=== PATIENT | male | born 1940 | race Caucasian/White ===

== ENCOUNTER → 2017-03-12 | Outpatient (CLI) | payer MEDICARE, MEDICAID ==
[~2017-03-12] MED LIST: AMOXICILLIN/CLA1 TA2 PO; ASPIR-TRIN325 MG PO; CAPTOPRIL25 MG PO; CEFAZOLIN1 G1 IV; DOXYCYCLINE HY100 M5 PO; IMDUR SA60 MG PO; LISINOPRIL10 MG PO; METOPROLOL50 MG PO; NORVASC5 MG PO; NOVOLOG; NOVOLOG MI100 UNIT/2 SC; TEFLARO400 MG IV; TRAMADOL HCL50 MG PO; ZOCOR40 MG PO; ZOSYN IV
[2017-03-12 16:45] LABS: BASO % 0.4 % (0.0-1.0); EOS # 0.1 10*3/uL (0.0-0.4); EOS % 1.6 % (1.0-4.0); HEMATOCRIT 37.2 % (42.0-52.0); HEMOGLOBIN 12.3 g/dl (14.0-18.0); LYMPH # 1.6 10*3/uL (1.3-4.4); LYMPH % 20.3 % (27.0-41.0); MEAN CELL VOLUME 92.1 fl (80.0-94.0); MEAN CORPUSCULAR HGB 30.4 pg (27.0-31.0); MEAN CORPUSCULAR HGB CONC 33.1 g/dl (33.0-37.0); MEAN PLATELET VOLUME 10.9 fl (9.6-12.3); MONO # 0.6 10*3/uL (0.1-1.0); NEUT # 5.3 10*3/uL (2.3-7.9); NEUT % 69.3 % (47.0-73.0); PLATELET COUNT AUTOMATED 203 10*3/uL (130-400); RED BLOOD COUNT 4.04 10*6/uL (4.50-5.90); WHITE BLOOD COUNT 7.7 10*3/uL (4.8-10.8)
[2017-03-12 17:14] LABS: C-REACTIVE PROTEIN 2.82 MG/DL (0-0.3); URIC ACID 7.1 mg/dL (3.5-7.2)
== END | disposition home or self-care (01) ==
LOC: LAB 15:39
PROVIDERS: Orthopaedic Surgery
DX: M25.532 Pain in left wrist (principal)

== ENCOUNTER 2018-10-22 07:43 | Emergency (ER) | payer MEDICARE, MEDICAID ==
[2018-10-22] MEDS ORDERED: MUCINEX DM 30/61 TAB PO (09:35)
== END 2018-10-22 09:37 | disposition home or self-care (01) ==
LOC: ED 07:43
DX: J98.8 Other specified respiratory disorders (principal); I12.9 Hypertensive chronic kidney disease with stage 1 through stage 4 chronic kidney disease, or unspecified chronic kidney disease; E11.22 Type 2 diabetes mellitus with diabetic chronic kidney disease; N18.3 Chronic kidney disease, stage 3 (moderate); E78.5 Hyperlipidemia, unspecified; E66.9 Obesity, unspecified; E11.40 Type 2 diabetes mellitus with diabetic neuropathy, unspecified; M86.8X7 Other osteomyelitis, ankle and foot; Z88.6 Allergy status to analgesic agent; Z88.8 Allergy status to other drugs, medicaments and biological substances; Z79.899 Other long term (current) drug therapy; Z79.82 Long term (current) use of aspirin; Z79.4 Long term (current) use of insulin

== ENCOUNTER 2019-07-21 23:41 | Emergency (ER) | payer OTHER, MEDICAID ==
[~2019-07-21 23:41] MED LIST changes: +MUCINEX DM 30/61 TAB PO
[2019-07-21] MEDS ORDERED: TRESIBA100 UNIT/1 SQ (23:45)
== END 2019-07-22 02:00 | disposition home or self-care (01) ==
LOC: ED 23:41
DX: S49.92XA Unspecified injury of left shoulder and upper arm, initial encounter (principal); E11.42 Type 2 diabetes mellitus with diabetic polyneuropathy; E11.22 Type 2 diabetes mellitus with diabetic chronic kidney disease; I12.9 Hypertensive chronic kidney disease with stage 1 through stage 4 chronic kidney disease, or unspecified chronic kidney disease; N18.3 Chronic kidney disease, stage 3 (moderate); I25.10 Atherosclerotic heart disease of native coronary artery without angina pectoris; E78.5 Hyperlipidemia, unspecified; E66.9 Obesity, unspecified; Z88.6 Allergy status to analgesic agent; Z88.8 Allergy status to other drugs, medicaments and biological substances; Z79.899 Other long term (current) drug therapy; Z79.82 Long term (current) use of aspirin; Z79.4 Long term (current) use of insulin; W01.198A Fall on same level from slipping, tripping and stumbling with subsequent striking against other object, initial encounter; Y93.89 Activity, other specified; Y92.091 Bathroom in other non-institutional residence as the place of occurrence of the external cause; Y99.8 Other external cause status

== ENCOUNTER → 2020-01-20 | Outpatient (CLI) | payer OTHER ==
[~2020-01-20] MED LIST changes: +TRESIBA100 UNIT/1 SQ
[2020-01-20 12:18] LABS: BASO # 0.1 10*3/uL (0.0-0.1); BASO % 0.9 % (0.0-1.0); EOS # 0.3 10*3/uL (0.0-0.4); EOS % 4.7 % (1.0-4.0); HEMATOCRIT 45.9 % (42.0-52.0); LYMPH # 1.5 10*3/uL (1.3-4.4); LYMPH % 26.5 % (27.0-41.0); MEAN CELL VOLUME 89.3 fl (80.0-94.0); MEAN CORPUSCULAR HGB 29.8 pg (27.0-31.0); MEAN CORPUSCULAR HGB CONC 33.3 g/dl (33.0-37.0); MEAN PLATELET VOLUME 11.3 fl (9.6-12.3); MONO # 0.5 10*3/uL (0.1-1.0); MONO % 7.9 % (3.0-9.0); NEUT # 3.4 10*3/uL (2.3-7.9); NEUT % 59.6 % (47.0-73.0); PLATELET COUNT AUTOMATED 220 10*3/uL (130-400); RED BLOOD COUNT 5.14 10*6/uL (4.50-5.90); RED CELL DISTRI WIDTH 12.7 % (0-14.5); WHITE BLOOD COUNT 5.7 10*3/uL (4.8-10.8)
[2020-01-20 12:31] LABS: URINE CREATININE RANDOM 80.6 mg/dL
[2020-01-20 12:47] LABS: CREATININE 2.09 mg/dL (0.70-1.30); POTASSIUM 3.9 mmol/L (3.5-5.1)
[2020-01-20 12:59] LABS: BACTERIA TRACE; BILIRUBIN NEGATIVE (NEGATIVE); BLOOD NEGATIVE (NEGATIVE); CLARITY CLEAR (CLEAR); COLOR YELLOW (YELLOW); EPITHELIAL CELLS 0-2; GLUCOSE 1+ (NEGATIVE); KETONE NEGATIVE (NEGATIVE); LEUKO ESTERASE NEGATIVE (NEGATIVE); NITRITE NEGATIVE (NEGATIVE); PH 6.5 (5.0-9.0); RBC 0-2 rbc/hpf (0-2); UROBILINOGEN 0.2 E.U./dl (0.2-1.0)
[2020-01-20 13:36] LABS: FERRITIN 33.5 ng/mL (22.0-322.0); VITAMIN D, 25-HYDROXY 26.8 ng/mL (30-100)
[2020-01-20 13:37] LABS: PTH INTACT 151.5 pg/mL (18.5-88.0)
== END | disposition home or self-care (01) ==
LOC: LAB 11:36
PROVIDERS: Internal Medicine Nephrology
DX: E11.22 Type 2 diabetes mellitus with diabetic chronic kidney disease (principal); N18.3 Chronic kidney disease, stage 3 (moderate); D63.1 Anemia in chronic kidney disease; N25.81 Secondary hyperparathyroidism of renal origin; E55.9 Vitamin D deficiency, unspecified; Z79.899 Other long term (current) drug therapy

== ENCOUNTER → 2020-01-26 | Outpatient (CLI) | payer OTHER | END | disposition home or self-care (01) | LOC: US 09:15 | DX: N28.1 Cyst of kidney, acquired (principal); N13.30 Unspecified hydronephrosis; N40.0 Benign prostatic hyperplasia without lower urinary tract symptoms; I73.9 Peripheral vascular disease, unspecified; N18.3 Chronic kidney disease, stage 3 (moderate) ==

== ENCOUNTER 2020-03-04 12:17 | Emergency (ER) | payer OTHER ==
[~2020-03-04] VITALS: Ht 182.8 cm; Wt 103.0 kg
[2020-03-04 13:14] LABS: BASO % 0.2 % (0.0-1.0); EOS % 0.3 % (1.0-4.0); HEMATOCRIT 39.7 % (42.0-52.0); LYMPH % 11.9 % (27.0-41.0); MEAN CELL VOLUME 87.3 fl (80.0-94.0); MEAN CORPUSCULAR HGB 29.9 pg (27.0-31.0); MEAN CORPUSCULAR HGB CONC 34.3 g/dl (33.0-37.0); MEAN PLATELET VOLUME 11.1 fl (9.6-12.3); MONO # 0.7 10*3/uL (0.1-1.0); MONO % 7.8 % (3.0-9.0); NEUT % 79.3 % (47.0-73.0); PLATELET COUNT AUTOMATED 176 10*3/uL (130-400); RED BLOOD COUNT 4.55 10*6/uL (4.50-5.90); RED CELL DISTRI WIDTH 13.2 % (0-14.5); WHITE BLOOD COUNT 8.8 10*3/uL (4.8-10.8)
[2020-03-04 13:28] LABS: ALBUMIN 3.5 gm/dl (3.1-4.5); CREATININE 4.39 mg/dL (0.70-1.30); POTASSIUM 3.3 mmol/L (3.5-5.1); TOTAL PROTEIN 7.5 gm/dL (6.4-8.2)
== END 2020-03-04 18:25 | disposition home or self-care (01) ==
LOC: ED 12:17
PROVIDERS: Emergency Medicine
DX: R10.32 Left lower quadrant pain (principal); E11.9 Type 2 diabetes mellitus without complications; M19.90 Unspecified osteoarthritis, unspecified site; I25.10 Atherosclerotic heart disease of native coronary artery without angina pectoris; I11.0 Hypertensive heart disease with heart failure; I50.9 Heart failure, unspecified; Z88.8 Allergy status to other drugs, medicaments and biological substances; Z79.82 Long term (current) use of aspirin

== ENCOUNTER 2020-03-08 16:32 | Emergency (ER) | payer MEDICARE ==
[~2020-03-08] VITALS: Ht 187.9 cm; Wt 103.0 kg
[2020-03-08 17:14] LABS: BASO % 0.4 % (0.0-1.0); EOS % 0.4 % (1.0-4.0); HEMATOCRIT 35.7 % (42.0-52.0); LYMPH # 1.2 10*3/uL (1.3-4.4); LYMPH % 14.8 % (27.0-41.0); MEAN CELL VOLUME 87.5 fl (80.0-94.0); MEAN CORPUSCULAR HGB 29.4 pg (27.0-31.0); MEAN CORPUSCULAR HGB CONC 33.6 g/dl (33.0-37.0); MEAN PLATELET VOLUME 10.9 fl (9.6-12.3); MONO # 0.9 10*3/uL (0.1-1.0); MONO % 10.4 % (3.0-9.0); NEUT # 6.1 10*3/uL (2.3-7.9); PLATELET COUNT AUTOMATED 199 10*3/uL (130-400); RED BLOOD COUNT 4.08 10*6/uL (4.50-5.90); RED CELL DISTRI WIDTH 13.2 % (0-14.5); WHITE BLOOD COUNT 8.4 10*3/uL (4.8-10.8)
[2020-03-08 17:29] LABS: POTASSIUM 3.8 mmol/L (3.5-5.1); TOTAL PROTEIN 7.1 gm/dL (6.4-8.2)
[2020-03-08 17:32] LABS: BILIRUBIN 1+ (NEGATIVE); CLARITY SL CLOUDY (CLEAR); COLOR YELLOW (YELLOW); GLUCOSE TRACE (NEGATIVE); KETONE NEGATIVE (NEGATIVE)
[2020-03-08 17:33] LABS: BLOOD TRACE-LYSED (NEGATIVE); NITRITE NEGATIVE (NEGATIVE); UROBILINOGEN 0.2 E.U./dl (0.2-1.0)
[2020-03-08 17:35] LABS: BACTERIA 1+; CALCIUM OXALATE CRYSTALS TRACE
[2020-03-08 17:36] LABS: LEUKO ESTERASE TRACE (NEGATIVE)
== END 2020-03-08 19:15 | disposition home or self-care (01) ==
LOC: ED 16:32
PROVIDERS: Emergency Medicine
DX: R33.9 Retention of urine, unspecified (principal); Z88.6 Allergy status to analgesic agent; Z79.899 Other long term (current) drug therapy; Z79.4 Long term (current) use of insulin; Z79.82 Long term (current) use of aspirin; Z88.8 Allergy status to other drugs, medicaments and biological substances

== ENCOUNTER → 2020-03-17 | Outpatient (CLI) | payer MEDICARE ==
[2020-03-17 10:39] LABS: BASO % 0.2 % (0.0-1.0); EOS # 0.3 10*3/uL (0.0-0.4); EOS % 2.7 % (1.0-4.0); HEMATOCRIT 40.6 % (42.0-52.0); LYMPH # 1.5 10*3/uL (1.3-4.4); LYMPH % 12.4 % (27.0-41.0); MEAN CELL VOLUME 89.2 fl (80.0-94.0); MEAN CORPUSCULAR HGB CONC 32.5 g/dl (33.0-37.0); MEAN PLATELET VOLUME 10.2 fl (9.6-12.3); MONO # 0.7 10*3/uL (0.1-1.0); MONO % 5.8 % (3.0-9.0); NEUT # 9.4 10*3/uL (2.3-7.9); NEUT % 78.2 % (47.0-73.0); PLATELET COUNT AUTOMATED 276 10*3/uL (130-400); RED BLOOD COUNT 4.55 10*6/uL (4.50-5.90); RED CELL DISTRI WIDTH 12.7 % (0-14.5)
[2020-03-17 11:23] LABS: ALBUMIN 3.1 gm/dl (3.1-4.5); CREATININE 1.97 mg/dL (0.70-1.30); POTASSIUM 3.8 mmol/L (3.5-5.1); TOTAL PROTEIN 7.7 gm/dL (6.4-8.2)
== END | disposition home or self-care (01) ==
LOC: LAB 03:35
PROVIDERS: Internal Medicine
DX: Z12.5 Encounter for screening for malignant neoplasm of prostate (principal); N40.0 Benign prostatic hyperplasia without lower urinary tract symptoms; I10 Essential (primary) hypertension

== ENCOUNTER → 2020-03-27 | Outpatient (CLI) | payer MEDICARE | END | disposition home or self-care (01) | LOC: US 14:07 | DX: N28.1 Cyst of kidney, acquired (principal); N40.0 Benign prostatic hyperplasia without lower urinary tract symptoms; N28.89 Other specified disorders of kidney and ureter ==

== ENCOUNTER 2020-06-27 15:48 | Inpatient (IN) | payer MEDICARE, SELFPAY ==
[~2020-06-27] VITALS: Ht 187.9 cm; Wt 107.1 kg
[2020-06-27 15:48] VITALS: BP 113/73
[~2020-06-27 15:48] MED LIST changes: +AMLODIPINE BESY10 MG PO; +CARDIZEM CD120 M2 PO; +CIPROFLOXACIN500 M4 PO; +METOPROLOL TART50 M1 PO; +NOVOLOG FL100 UNIT/2 SC; +PRAVASTATIN SOD40 MG PO; +QUETIAPINE FUMA25 MG PO; +TRESIBA FL100 UNIT/1 SQ; +TYLENOL EXTRA500 M2 PO; +VITAMIN D350 MCG PO; +XARE20MG PO
[2020-06-27 16:06] LABS: BASO % 0.6 % (0.0-1.0); EOS # 0.3 10*3/uL (0.0-0.4); EOS % 6.3 % (1.0-4.0); HEMATOCRIT 31.2 % (42.0-52.0); LYMPH # 1.2 10*3/uL (1.3-4.4); LYMPH % 22.7 % (27.0-41.0); MEAN CELL VOLUME 89.1 fl (80.0-94.0); MEAN CORPUSCULAR HGB 26.3 pg (27.0-31.0); MEAN CORPUSCULAR HGB CONC 29.5 g/dl (33.0-37.0); MEAN PLATELET VOLUME 9.1 fl (9.6-12.3); MONO # 0.5 10*3/uL (0.1-1.0); NEUT # 3.3 10*3/uL (2.3-7.9); PLATELET COUNT AUTOMATED 242 10*3/uL (130-400); RED CELL DISTRI WIDTH 14.9 % (0-14.5); WHITE BLOOD COUNT 5.4 10*3/uL (4.8-10.8)
[2020-06-27 16:20] LABS: ALBUMIN 2.8 gm/dl (3.1-4.5); CREATININE 2.33 mg/dL (0.70-1.30); POTASSIUM 4.2 mmol/L (3.5-5.1); TOTAL PROTEIN 6.4 gm/dL (6.4-8.2)
[2020-06-27 16:21] LABS: ACT PARTIAL THROMBO TIME 33.6 SECONDS (20.0-32.1); INTERNATIONAL NORM RATIO 1.2 (2.0-3.5); TROPONIN I 0.017 ng/ml (<0.045)
[2020-06-27 16:26] VITALS: BP 112/65
[2020-06-27 16:55] VITALS: BP 135/83
[2020-06-27 17:10] VITALS: BP 124/71
[2020-06-27 18:11] VITALS: BP 104/51
[2020-06-27 18:58] VITALS: BP 110/54
[2020-06-27] MEDS ORDERED: SEROQUEL50 MG PO (21:07)
[2020-06-27] MEDS ORDERED: LEVOFLOXACIN500 MG PO (21:08)
[2020-06-27] MEDS ORDERED: CRANBERRY PO (21:09)
[2020-06-27] MEDS ORDERED: SACCHAROMYCES250 MG PO (21:11)
[2020-06-27] MEDS ORDERED: TOPROL XL100 MG PO (21:13)
[2020-06-27] MEDS ORDERED: FUROSEMIDE20 M1 PO (21:15)
[2020-06-27] MEDS ORDERED: K2 PLUS D3 TAB1 EACH PO (21:19)
[2020-06-28] VITALS: BP 127/74; BP 131/84
[2020-06-28 00:28] VITALS: BP 131/84
[2020-06-28 08:00] VITALS: BP 130/82
[2020-06-28 09:42] LABS: INTERNATIONAL NORM RATIO 1.1 (2.0-3.5)
[2020-06-28 12:00] VITALS: BP 125/60
[2020-06-28] MEDS ORDERED: VITAMIN D31250 MC1 PO (14:48)
[2020-06-28 16:00] VITALS: BP 125/72
[2020-06-28 20:00] VITALS: BP 132/76
[2020-06-29] VITALS: BP 129/68
[2020-06-29 06:23] LABS: INTERNATIONAL NORM RATIO 1.1 (2.0-3.5)
[2020-06-29 06:33] LABS: BASO % 0.4 % (0.0-1.0); EOS # 0.2 10*3/uL (0.0-0.4); HEMATOCRIT 33.4 % (42.0-52.0); LYMPH # 1.6 10*3/uL (1.3-4.4); LYMPH % 21.4 % (27.0-41.0); MEAN CORPUSCULAR HGB CONC 29.9 g/dl (33.0-37.0); MEAN PLATELET VOLUME 9.8 fl (9.6-12.3); MONO # 0.8 10*3/uL (0.1-1.0); MONO % 10.9 % (3.0-9.0); NEUT # 4.7 10*3/uL (2.3-7.9); NEUT % 64.2 % (47.0-73.0); PLATELET COUNT AUTOMATED 281 10*3/uL (130-400); RED BLOOD COUNT 3.84 10*6/uL (4.50-5.90); RED CELL DISTRI WIDTH 14.6 % (0-14.5); WHITE BLOOD COUNT 7.3 10*3/uL (4.8-10.8)
[2020-06-29 06:36] LABS: CREATININE 2.19 mg/dL (0.70-1.30); POTASSIUM 3.8 mmol/L (3.5-5.1)
[2020-06-29 08:00] VITALS: BP 123/70
[2020-06-29 12:00] VITALS: BP 126/60
[2020-06-29 16:00] VITALS: BP 113/63
[2020-06-29 20:00] VITALS: BP 121/69
[2020-06-30] VITALS: BP 117/74
[2020-06-30 06:27] LABS: INTERNATIONAL NORM RATIO 1.1 (2.0-3.5)
[2020-06-30 12:00] VITALS: BP 126/84
[2020-06-30 16:00] VITALS: BP 138/62
[2020-07-01] VITALS: BP 115/83
[2020-07-01 06:08] LABS: BASO % 0.4 % (0.0-1.0); CREATININE 2.05 mg/dL (0.70-1.30); EOS # 0.2 10*3/uL (0.0-0.4); EOS % 2.7 % (1.0-4.0); HEMATOCRIT 32.7 % (42.0-52.0); LYMPH # 1.6 10*3/uL (1.3-4.4); LYMPH % 22.5 % (27.0-41.0); MEAN CORPUSCULAR HGB 26.1 pg (27.0-31.0); MEAN PLATELET VOLUME 10.1 fl (9.6-12.3); MONO # 0.8 10*3/uL (0.1-1.0); MONO % 11.5 % (3.0-9.0); NEUT # 4.4 10*3/uL (2.3-7.9); NEUT % 62.5 % (47.0-73.0); PLATELET COUNT AUTOMATED 280 10*3/uL (130-400); POTASSIUM 3.2 mmol/L (3.5-5.1); RED BLOOD COUNT 3.76 10*6/uL (4.50-5.90); RED CELL DISTRI WIDTH 14.7 % (0-14.5); WHITE BLOOD COUNT 7.1 10*3/uL (4.8-10.8)
[2020-07-01 06:17] LABS: INTERNATIONAL NORM RATIO 1.4 (2.0-3.5)
[2020-07-01 12:00] VITALS: BP 136/86
[2020-07-01 16:00] VITALS: BP 122/83
[2020-07-01 20:00] VITALS: BP 123/65
[2020-07-01 23:00] VITALS: BP 119/63
[2020-07-02] VITALS: BP 119/63
[2020-07-02 01:15] VITALS: BP 131/75
[2020-07-02 05:42] LABS: POTASSIUM 3.6 mmol/L (3.5-5.1)
[2020-07-02 12:00] VITALS: BP 106/68
[2020-07-02 16:00] VITALS: BP 111/48
[2020-07-02 20:30] VITALS: BP 125/68
[2020-07-03 00:30] VITALS: BP 112/71
[2020-07-03 08:00] VITALS: BP 125/84
[2020-07-03 09:41] LABS: INTERNATIONAL NORM RATIO 1.7 (2.0-3.5)
[2020-07-03 12:00] VITALS: BP 123/79
[2020-07-03 16:00] VITALS: BP 106/62
[2020-07-03 20:00] VITALS: BP 100/65
[2020-07-03 23:25] VITALS: BP 106/69
[2020-07-04 04:00] VITALS: BP 106/69
[2020-07-04 06:34] LABS: BASO % 0.6 % (0.0-1.0); EOS # 0.3 10*3/uL (0.0-0.4); EOS % 4.2 % (1.0-4.0); HEMATOCRIT 33.7 % (42.0-52.0); LYMPH # 1.8 10*3/uL (1.3-4.4); LYMPH % 25.4 % (27.0-41.0); MEAN CELL VOLUME 85.8 fl (80.0-94.0); MEAN CORPUSCULAR HGB 25.2 pg (27.0-31.0); MEAN CORPUSCULAR HGB CONC 29.4 g/dl (33.0-37.0); MEAN PLATELET VOLUME 10.1 fl (9.6-12.3); MONO # 0.8 10*3/uL (0.1-1.0); MONO % 10.8 % (3.0-9.0); NEUT # 4.1 10*3/uL (2.3-7.9); NEUT % 58.7 % (47.0-73.0); PLATELET COUNT AUTOMATED 245 10*3/uL (130-400); RED BLOOD COUNT 3.93 10*6/uL (4.50-5.90); RED CELL DISTRI WIDTH 14.6 % (0-14.5)
[2020-07-04 06:44] LABS: CREATININE 2.24 mg/dL (0.70-1.30); POTASSIUM 3.9 mmol/L (3.5-5.1)
[2020-07-04 06:56] LABS: INTERNATIONAL NORM RATIO 1.7 (2.0-3.5)
[2020-07-04 08:00] VITALS: BP 121/74
[2020-07-04] MEDS ORDERED: PACERONE200 MG PO (08:53)
[2020-07-04] MEDS ORDERED: WARFARIN SODIU2.5 MG PO (08:53)
[2020-07-04] MEDS ORDERED: LASIX40 MG PO (08:53)
== END 2020-07-04 12:55 | disposition home health service (06) | DRG 291 ==
LOC: ED 15:48 → 4E 17:58 → EDHOLD 17:58 → 4E 18:50
PROVIDERS: Emergency Medicine; Internal Medicine Cardiovascular Disease; ADMIT Internal Medicine; ATTEND Internal Medicine
DX: I13.0 Hypertensive heart and chronic kidney disease with heart failure and stage 1 through stage 4 chronic kidney disease, or unspecified chronic kidney disease (principal); G93.41 Metabolic encephalopathy; I50.31 Acute diastolic (congestive) heart failure; N18.4 Chronic kidney disease, stage 4 (severe); I48.21 Permanent atrial fibrillation; E78.2 Mixed hyperlipidemia; I25.10 Atherosclerotic heart disease of native coronary artery without angina pectoris; E11.22 Type 2 diabetes mellitus with diabetic chronic kidney disease; R62.7 Adult failure to thrive; I48.0 Paroxysmal atrial fibrillation; D64.9 Anemia, unspecified; E87.6 Hypokalemia; Z79.01 Long term (current) use of anticoagulants; Z88.5 Allergy status to narcotic agent; Z83.3 Family history of diabetes mellitus; Z88.8 Allergy status to other drugs, medicaments and biological substances; Z95.1 Presence of aortocoronary bypass graft; Z68.32 Body mass index [BMI] 32.0-32.9, adult; Z87.440 Personal history of urinary (tract) infections; Z20.828 Contact with and (suspected) exposure to other viral communicable diseases

== ENCOUNTER → 2020-07-20 | Outpatient (CLI) | payer MEDICARE ==
[~2020-07-20] MED LIST changes: +CRANBERRY PO; +FUROSEMIDE20 M1 PO; +K2 PLUS D3 TAB1 EACH PO; +LASIX40 MG PO; +LEVOFLOXACIN500 MG PO; +PACERONE200 MG PO; +SACCHAROMYCES250 MG PO; +SEROQUEL50 MG PO; +TOPROL XL100 MG PO; +VITAMIN D31250 MC1 PO; +WARFARIN SODIU2.5 MG PO
== END | disposition home or self-care (01) ==
LOC: US 14:00
PROVIDERS: ATTEND Internal Medicine
DX: R60.0 Localized edema (principal)

== ENCOUNTER 2020-08-30 15:56 | Emergency (ER) | payer MEDICARE ==
[~2020-08-30] VITALS: Ht 185.4 cm; Wt 106.6 kg
== END 2020-08-30 21:43 | disposition short-term general hospital (02) ==
LOC: ED 15:56
DX: S12.110A Anterior displaced Type II dens fracture, initial encounter for closed fracture (principal); Z88.8 Allergy status to other drugs, medicaments and biological substances; Z79.899 Other long term (current) drug therapy; Z79.01 Long term (current) use of anticoagulants; Z79.4 Long term (current) use of insulin; Z79.82 Long term (current) use of aspirin; X58.XXXA Exposure to other specified factors, initial encounter; Y93.89 Activity, other specified; Y92.89 Other specified places as the place of occurrence of the external cause; Y99.8 Other external cause status

== ENCOUNTER → 2020-10-31 | Outpatient (CLI) | payer MEDICARE | END | disposition home or self-care (01) | LOC: RAD 11:00 | PROVIDERS: ATTEND Neurological Surgery | DX: S12.110A Anterior displaced Type II dens fracture, initial encounter for closed fracture (principal); M47.812 Spondylosis without myelopathy or radiculopathy, cervical region; M50.30 Other cervical disc degeneration, unspecified cervical region; M48.02 Spinal stenosis, cervical region; X58.XXXA Exposure to other specified factors, initial encounter; Y93.89 Activity, other specified; Y92.89 Other specified places as the place of occurrence of the external cause; Y99.8 Other external cause status ==

== ENCOUNTER → 2021-04-19 | Outpatient (CLI) | payer MEDICARE ==
[~2021-04-19] MED LIST changes: +MACROBID100 M1 PO
[2021-04-19 11:29] LABS: ALBUMIN 3.1 gm/dl (3.1-4.5); CREATININE 2.27 mg/dL (0.70-1.30); POTASSIUM 3.1 mmol/L (3.5-5.1); TOTAL PROTEIN 7.5 gm/dL (6.4-8.2)
[2021-04-19 12:08] LABS: BASO # 0.1 10*3/uL (0.0-0.1); BASO % 0.6 % (0.0-1.0); EOS # 0.2 10*3/uL (0.0-0.4); EOS % 2.7 % (1.0-4.0); LYMPH % 23.9 % (27.0-41.0); MEAN CELL VOLUME 84.4 fl (80.0-94.0); MEAN CORPUSCULAR HGB 26.2 pg (27.0-31.0); MEAN PLATELET VOLUME 10.9 fl (9.6-12.3); MONO # 0.7 10*3/uL (0.1-1.0); MONO % 8.2 % (3.0-9.0); NEUT # 5.5 10*3/uL (2.3-7.9); NEUT % 64.2 % (47.0-73.0); PLATELET COUNT AUTOMATED 293 10*3/uL (130-400); RED BLOOD COUNT 4.74 10*6/uL (4.50-5.90); RED CELL DISTRI WIDTH 14.7 % (0-14.5); WHITE BLOOD COUNT 8.5 10*3/uL (4.8-10.8)
== END | disposition home or self-care (01) ==
LOC: LAB 00:08
PROVIDERS: ATTEND Urology
DX: C61 Malignant neoplasm of prostate (principal); R53.83 Other fatigue; D40.0 Neoplasm of uncertain behavior of prostate

== ENCOUNTER → 2021-05-08 | Outpatient (CLI) | payer MEDICARE | END | disposition home or self-care (01) | LOC: CT 00:20 | PROVIDERS: ATTEND Urology | DX: N28.1 Cyst of kidney, acquired (principal); K57.30 Diverticulosis of large intestine without perforation or abscess without bleeding; D35.02 Benign neoplasm of left adrenal gland; N13.30 Unspecified hydronephrosis ==

== ENCOUNTER 2021-05-13 09:42 | Emergency (ER) | payer MEDICARE ==
[~2021-05-13] VITALS: Ht 185.4 cm; Wt 93.9 kg
[~2021-05-13 09:42] MED LIST changes: -MACROBID100 M1 PO
[2021-05-13 10:45] LABS: BASO # 0.1 10*3/uL (0.0-0.1); BASO % 0.8 % (0.0-1.0); EOS # 0.2 10*3/uL (0.0-0.4); EOS % 2.8 % (1.0-4.0); HEMATOCRIT 38.5 % (42.0-52.0); LYMPH # 1.5 10*3/uL (1.3-4.4); LYMPH % 23.5 % (27.0-41.0); MEAN CELL VOLUME 82.8 fl (80.0-94.0); MEAN CORPUSCULAR HGB CONC 31.4 g/dl (33.0-37.0); MEAN PLATELET VOLUME 9.8 fl (9.6-12.3); MONO # 0.6 10*3/uL (0.1-1.0); MONO % 8.6 % (3.0-9.0); NEUT # 4.1 10*3/uL (2.3-7.9); PLATELET COUNT AUTOMATED 250 10*3/uL (130-400); RED BLOOD COUNT 4.65 10*6/uL (4.50-5.90); RED CELL DISTRI WIDTH 15.5 % (0-14.5); WHITE BLOOD COUNT 6.4 10*3/uL (4.8-10.8)
[2021-05-13 11:01] LABS: ALBUMIN 3.1 gm/dl (3.1-4.5); CREATININE 2.77 mg/dL (0.70-1.30); POTASSIUM 3.6 mmol/L (3.5-5.1); TOTAL PROTEIN 7.5 gm/dL (6.4-8.2)
[2021-05-13 11:33] LABS: BILIRUBIN Negative (Negative); BLOOD 2+ (Negative); CLARITY Turbid (Clear); COLOR Yellow (Yellow); GLUCOSE Trace (Negative); KETONE Negative (Negative); LEUKO ESTERASE 3+ (Negative); NITRITE Positive (Negative); PH 5.5 (4.5-8.0)
[2021-05-13 11:47] LABS: BACTERIA 3+; WBC TNTC wbc/hpf (0-5)
[2021-05-13] MEDS ORDERED: MACROBID100 M1 PO (12:54)
== END 2021-05-13 13:28 | disposition home or self-care (01) ==
LOC: ED 09:42
PROVIDERS: Emergency Medicine
DX: N39.0 Urinary tract infection, site not specified (principal); R44.3 Hallucinations, unspecified; I11.0 Hypertensive heart disease with heart failure; I50.9 Heart failure, unspecified; E66.9 Obesity, unspecified; Z79.82 Long term (current) use of aspirin; Z79.899 Other long term (current) drug therapy; Z79.01 Long term (current) use of anticoagulants; Z88.5 Allergy status to narcotic agent; Z95.1 Presence of aortocoronary bypass graft; Z98.890 Other specified postprocedural states; Z88.6 Allergy status to analgesic agent

== ENCOUNTER 2021-08-01 09:35 | Emergency (ER) | payer MEDICARE ==
[~2021-08-01] VITALS: Ht 182.8 cm; Wt 95.3 kg
[~2021-08-01 09:35] MED LIST changes: +MACROBID100 M1 PO
[2021-08-01] MEDS ORDERED: PREDNISONE50 MG PO (11:09)
== END 2021-08-01 11:30 | disposition home or self-care (01) ==
LOC: ED 09:35
DX: L25.9 Unspecified contact dermatitis, unspecified cause (principal); Z88.6 Allergy status to analgesic agent; Z88.8 Allergy status to other drugs, medicaments and biological substances; Z79.899 Other long term (current) drug therapy

== ENCOUNTER 2021-08-03 12:42 | Emergency (ER) | payer MEDICARE ==
[~2021-08-03] VITALS: Ht 182.8 cm; Wt 102.1 kg
[~2021-08-03 12:42] MED LIST changes: +PREDNISONE50 MG PO
[2021-08-03 14:38] LABS: BASO % 0.1 % (0.0-1.0); EOS % 0.1 % (1.0-4.0); HEMATOCRIT 38.5 % (42.0-52.0); LYMPH # 1.5 10*3/uL (1.3-4.4); LYMPH % 15.1 % (27.0-41.0); MEAN CELL VOLUME 83.7 fl (80.0-94.0); MEAN CORPUSCULAR HGB 26.1 pg (27.0-31.0); MEAN CORPUSCULAR HGB CONC 31.2 g/dl (33.0-37.0); MEAN PLATELET VOLUME 10.8 fl (9.6-12.3); MONO # 0.7 10*3/uL (0.1-1.0); MONO % 7.6 % (3.0-9.0); NEUT # 7.5 10*3/uL (2.3-7.9); NEUT % 76.4 % (47.0-73.0); PLATELET COUNT AUTOMATED 248 10*3/uL (130-400); RED CELL DISTRI WIDTH 15.9 % (0-14.5); WHITE BLOOD COUNT 9.8 10*3/uL (4.8-10.8)
[2021-08-03 14:47] LABS: BILIRUBIN Negative (Negative); BLOOD 2+ (Negative); CLARITY Turbid (Clear); COLOR Yellow (Yellow); GLUCOSE 3+ (Negative); KETONE Negative (Negative); LEUKO ESTERASE 3+ (Negative); NITRITE Positive (Negative); PH 6.5 (4.5-8.0); UROBILINOGEN 0.2 E.U./dl (0.0-1.0)
[2021-08-03 14:53] LABS: ALBUMIN 3.2 gm/dl (3.1-4.5); CREATININE 2.92 mg/dL (0.70-1.30); POTASSIUM 3.6 mmol/L (3.5-5.1); TOTAL PROTEIN 7.8 gm/dL (6.4-8.2)
[2021-08-03 14:54] LABS: BACTERIA 2+; EPITHELIAL CELLS 0-2; RBC TNTC rbc/hpf (0-2); WBC TNTC wbc/hpf (0-5)
== END 2021-08-03 19:09 | disposition home or self-care (01) ==
LOC: ED 12:42
PROVIDERS: Nurse Practitioner Family
DX: E11.65 Type 2 diabetes mellitus with hyperglycemia (principal); I11.0 Hypertensive heart disease with heart failure; M19.90 Unspecified osteoarthritis, unspecified site; I50.9 Heart failure, unspecified; I25.10 Atherosclerotic heart disease of native coronary artery without angina pectoris

== ENCOUNTER → 2021-09-18 | Outpatient (CLI) | payer MEDICARE | END | disposition home or self-care (01) | LOC: RAD 12:26 | PROVIDERS: ATTEND Internal Medicine | DX: R06.02 Shortness of breath (principal) ==

== ENCOUNTER → 2021-11-22 | Outpatient (CLI) | payer MEDICARE ==
[2021-11-22 10:28] LABS: BASO # 0.1 10*3/uL (0.0-0.1); BASO % 0.6 % (0.0-1.0); EOS # 0.3 10*3/uL (0.0-0.4); EOS % 3.8 % (1.0-4.0); HEMATOCRIT 38.5 % (42.0-52.0); LYMPH # 2.1 10*3/uL (1.3-4.4); LYMPH % 24.4 % (27.0-41.0); MEAN CELL VOLUME 83.5 fl (80.0-94.0); MEAN CORPUSCULAR HGB 25.6 pg (27.0-31.0); MEAN CORPUSCULAR HGB CONC 30.6 g/dl (33.0-37.0); MEAN PLATELET VOLUME 9.8 fl (9.6-12.3); MONO # 0.6 10*3/uL (0.1-1.0); MONO % 6.8 % (3.0-9.0); NEUT # 5.4 10*3/uL (2.3-7.9); NEUT % 63.9 % (47.0-73.0); PLATELET COUNT AUTOMATED 251 10*3/uL (130-400); RED BLOOD COUNT 4.61 10*6/uL (4.50-5.90); RED CELL DISTRI WIDTH 16.2 % (0-14.5); WHITE BLOOD COUNT 8.4 10*3/uL (4.8-10.8)
[2021-11-22 10:47] LABS: CREATININE 2.09 mg/dL (0.70-1.30); POTASSIUM 2.8 mmol/L (3.5-5.1); THYROXINE (T4) TOTAL 8.2 ug/dl (4.5-12.1); TOTAL PROTEIN 7.5 gm/dL (6.4-8.2)
[2021-11-22 10:52] LABS: THYROID STIM HORMONE (HS) 4.02 uIU/ml (0.358-4.75)
[2021-11-22 11:14] LABS: VITAMIN D, 25-HYDROXY 46.2 ng/mL (30-100)
== END | disposition home or self-care (01) ==
LOC: LAB 00:12
PROVIDERS: ATTEND Internal Medicine
DX: I12.0 Hypertensive chronic kidney disease with stage 5 chronic kidney disease or end stage renal disease (principal); N18.30 Chronic kidney disease, stage 3 unspecified; E11.9 Type 2 diabetes mellitus without complications; E78.2 Mixed hyperlipidemia; Z00.01 Encounter for general adult medical examination with abnormal findings

== ENCOUNTER 2022-01-20 09:22 | Inpatient (IN) | payer MEDICARE ==
[2022-01-20] VITALS (8 sets, daily range): BP systolic 113–133; BP diastolic 57–75
[~2022-01-20] VITALS: Ht 182.9 cm; Wt 110.7 kg
[~2022-01-20 09:22] MED LIST changes: +AMARYL4 MG PO; +CEFTRIAXONE1 GM IV; +HUMALOG100 UNIT/1 SC; +LANTUS SOL100 UNIT/1 SC; +OZEMPIC0.25 MG/01 SQ; +TRAZODONE50 MG PO
[2022-01-20 09:57] LABS: BASO % 0.6 % (0.0-1.0); EOS # 0.2 10*3/uL (0.0-0.4); EOS % 3.7 % (1.0-4.0); HEMATOCRIT 31.8 % (42.0-52.0); LYMPH # 1.3 10*3/uL (1.3-4.4); LYMPH % 20.2 % (27.0-41.0); MEAN CELL VOLUME 80.7 fl (80.0-94.0); MEAN CORPUSCULAR HGB 23.9 pg (27.0-31.0); MEAN CORPUSCULAR HGB CONC 29.6 g/dl (33.0-37.0); MEAN PLATELET VOLUME 9.3 fl (9.6-12.3); MONO # 0.6 10*3/uL (0.1-1.0); MONO % 8.8 % (3.0-9.0); NEUT # 4.3 10*3/uL (2.3-7.9); NEUT % 66.4 % (47.0-73.0); PLATELET COUNT AUTOMATED 233 10*3/uL (130-400); RED BLOOD COUNT 3.94 10*6/uL (4.50-5.90); RED CELL DISTRI WIDTH 16.6 % (0-14.5); WHITE BLOOD COUNT 6.5 10*3/uL (4.8-10.8)
[2022-01-20 10:07] LABS: ACT PARTIAL THROMBO TIME 41.9 SECONDS (20.0-32.1); INTERNATIONAL NORM RATIO 2.4 (2.0-3.5)
[2022-01-20 10:13] LABS: CREATININE 2.48 mg/dL (0.70-1.30); POTASSIUM 3.8 mmol/L (3.5-5.1); TOTAL PROTEIN 7.2 gm/dL (6.4-8.2)
[2022-01-20] MEDS ORDERED: LASIX40 MG PO (11:05)
[2022-01-21] VITALS: BP 125/69
[2022-01-21 06:16] LABS: CREATININE 2.25 mg/dL (0.70-1.30); POTASSIUM 3.3 mmol/L (3.5-5.1); TOTAL PROTEIN 6.9 gm/dL (6.4-8.2)
[2022-01-21 06:31] LABS: BASO % 0.5 % (0.0-1.0); EOS # 0.2 10*3/uL (0.0-0.4); EOS % 3.3 % (1.0-4.0); HEMATOCRIT 31.4 % (42.0-52.0); LYMPH # 1.4 10*3/uL (1.3-4.4); LYMPH % 19.4 % (27.0-41.0); MEAN CELL VOLUME 80.7 fl (80.0-94.0); MEAN CORPUSCULAR HGB 23.7 pg (27.0-31.0); MEAN CORPUSCULAR HGB CONC 29.3 g/dl (33.0-37.0); MEAN PLATELET VOLUME 10.2 fl (9.6-12.3); MONO # 0.6 10*3/uL (0.1-1.0); MONO % 8.4 % (3.0-9.0); NEUT % 67.9 % (47.0-73.0); PLATELET COUNT AUTOMATED 228 10*3/uL (130-400); RED BLOOD COUNT 3.89 10*6/uL (4.50-5.90); RED CELL DISTRI WIDTH 16.7 % (0-14.5); WHITE BLOOD COUNT 7.4 10*3/uL (4.8-10.8)
[2022-01-21 06:33] LABS: INTERNATIONAL NORM RATIO 2.6 (2.0-3.5)
[2022-01-21 08:00] VITALS: BP 124/72
[2022-01-21 12:00] VITALS: BP 114/70
[2022-01-21 16:00] VITALS: BP 114/71
[2022-01-21 20:00] VITALS: BP 123/78
[2022-01-22] VITALS: BP 109/58
[2022-01-22 06:42] LABS: INTERNATIONAL NORM RATIO 2.7 (2.0-3.5)
[2022-01-22 08:00] VITALS: BP 129/76
[2022-01-22] MEDS ORDERED: LASIX40 MG PO (08:07)
== END 2022-01-22 11:39 | disposition home or self-care (01) | DRG 292 ==
LOC: ED 09:22 → EDHOLD 10:23 → 4E 10:23
PROVIDERS: Emergency Medicine; ADMIT Internal Medicine; ATTEND Internal Medicine
DX: I50.33 Acute on chronic diastolic (congestive) heart failure (principal); N18.4 Chronic kidney disease, stage 4 (severe); I48.21 Permanent atrial fibrillation; Z68.42 Body mass index [BMI] 45.0-49.9, adult; E11.22 Type 2 diabetes mellitus with diabetic chronic kidney disease; E78.2 Mixed hyperlipidemia; I25.10 Atherosclerotic heart disease of native coronary artery without angina pectoris; E87.6 Hypokalemia; R62.7 Adult failure to thrive; Z88.5 Allergy status to narcotic agent; Z88.8 Allergy status to other drugs, medicaments and biological substances; Z79.01 Long term (current) use of anticoagulants; Z88.6 Allergy status to analgesic agent; Z79.899 Other long term (current) drug therapy; Z79.1 Long term (current) use of non-steroidal anti-inflammatories (NSAID); Z95.1 Presence of aortocoronary bypass graft; Z83.3 Family history of diabetes mellitus

== ENCOUNTER 2022-02-01 22:13 | Emergency (ER) | payer MEDICARE ==
[~2022-02-01] VITALS: Ht 185.4 cm; Wt 136.1 kg
[~2022-02-01 22:13] MED LIST changes: +AMIODARONE HYD200 MG PO; +HYDRALAZINE10 MG PO; +METOPROLOL SUCC25 M2 PO
[2022-02-01 22:33] LABS: HEMATOCRIT 33.5 % (42.0-52.0); MEAN CELL VOLUME 82.9 fl (80.0-94.0); MEAN CORPUSCULAR HGB CONC 27.8 g/dl (33.0-37.0); MEAN PLATELET VOLUME 11.4 fl (9.6-12.3); NUCLEATED RED BLOOD CELL 0.1 10*3/uL (0.0-0.0); NUCLEATED RED BLOOD CELL 1.1 % (0.0-0.0); PLATELET COUNT AUTOMATED 275 10*3/uL (130-400); RED BLOOD COUNT 4.04 10*6/uL (4.50-5.90); RED CELL DISTRI WIDTH 17.2 % (0-14.5); WHITE BLOOD COUNT 13.3 10*3/uL (4.8-10.8)
[2022-02-01 22:49] LABS: CREATININE 4.14 mg/dL (0.70-1.30); POTASSIUM 3.4 mmol/L (3.5-5.1); TOTAL PROTEIN 6.5 gm/dL (6.4-8.2)
[2022-02-01 22:58] LABS: MANUAL DIFF REFLEX YES
[2022-02-01 22:59] LABS: INTERNATIONAL NORM RATIO 3.7 (2.0-3.5)
[2022-02-01 23:01] LABS: ATYPICAL LYMPHS 2 % (0-0); TOTAL CELLS COUNTED 100 #CELLS
[2022-02-01 23:02] LABS: BURR CELLS MODERATE; MICROCYTOSIS SLIGHT; PLATELET SUFFICIENCY NORMAL (NORMAL); POLYCHROMASIA SLIGHT
[2022-02-01 23:03] LABS: OVALOCYTES FEW
== END 2022-02-02 06:36 ==
LOC: ED 22:13
PROVIDERS: Emergency Medicine
DX: I46.9 Cardiac arrest, cause unspecified (principal)